=== PATIENT | female | born 1955 ===

== ENCOUNTER 2018-08-06 08:41 | Outpatient (CLI) | payer OTHER | END 2018-08-06 08:43 | disposition home or self-care (01) | LOC: SONOGRAMA 08:41 | DX: E04.1 Nontoxic single thyroid nodule (principal) ==

== ENCOUNTER 2025-05-05 09:15 | Outpatient (CLI) | payer OTHER | END 2025-05-05 09:16 | disposition home or self-care (01) | LOC: SONOGRAMA 09:15 | PROVIDERS: ATTEND Pathology Anatomic Pathology | DX: D34 Benign neoplasm of thyroid gland (principal); E07.89 Other specified disorders of thyroid; E04.1 Nontoxic single thyroid nodule ==